=== PATIENT | female | born 1960 ===

== ENCOUNTER 2023-05-23 07:05 | Day surgery (SDC) | payer OTHER ==
[~2023-05-23] VITALS: Ht 157.5 cm; Wt 63.5 kg
[~2023-05-23 07:05] MED LIST: CLONAZEPAM1 M1 PO; CRESTOR5 MG PO; RESTORIL30 M1 PO
[2023-05-23] MEDS ORDERED: OXYC1TAB9 PO (12:45)
== END 2023-05-23 18:05 | disposition home or self-care (01) ==
LOC: CIR.AMB 07:05
PROVIDERS: ATTEND Surgery
DX: K64.2 Third degree hemorrhoids (principal); K64.8 Other hemorrhoids; K64.4 Residual hemorrhoidal skin tags; K62.0 Anal polyp; K62.89 Other specified diseases of anus and rectum; K62.5 Hemorrhage of anus and rectum; Z20.822 Contact with and (suspected) exposure to COVID-19; Z88.6 Allergy status to analgesic agent

== ENCOUNTER 2025-06-08 07:10 | Outpatient (CLI) | payer OTHER ==
[~2025-06-08 07:10] MED LIST changes: +OXYC1TAB9 PO
[2025-06-08 07:56] LABS: URINE APPEARANCE Clear; URINE BILIRRUBIN Negative (NEGATIVE); URINE BLOOD Negative; URINE COLOR Yellow; URINE GLUCOSE Negative (NEGATIVE); URINE KETONE Negative (NEGATIVE); URINE LEUKOCYTE Negative; URINE NITRATE Negative; URINE PROTEIN Negative (NEGATIVE); URINE UROBILINOGEN 0.2 E.U./dl
[2025-06-08 07:57] LABS: URINE EPITHELIAL CELLS 1.9 uL (0.0-38.8); URINE RBC 4.5 uL (0.0-20.8)
[2025-06-08 08:03] LABS: URINE BACTERIA 3.6 uL (0.0-1933); URINE CAST 0.00 uL (0.0-1.40); URINE WBC 0.9 uL (0.0-23.2)
[2025-06-08 08:05] LABS: BASO % 1.4 % (0.1-1.2); EOS # 0.09 (0.04-0.54); EOS % 1.4 % (0.7-7.0); LYMPH # 1.64 (1.18-3.74); LYMPH % 26.1 % (19.3-53.1); MEAN PLATELET VOLUME 9.70 fl (9.4-12.4); MONO # 0.38 (0.24-0.82); MONO % 6.1 % (4.7-12.5); NEUT # 4.07 (1.56-6.13); NEUT % 64.8 % (34.0-71.1); RED CELL DISTRIBUTION WIDTH 13.2 % (11.6-14.4)
[2025-06-08 08:17] LABS: ALT/SGPT 32.0 U/L (12-78); AST/SGOT 16.0 U/L (15-37); BILIRUBIN TOTAL 1.19 mg/dL (0.3-1.2); BUN CREA RATIO 13.0 (7.0-25.0); CHOL HDL RATIO 4.8 (0-5.0); CREATININE SERUM 1.12 mg/dL (0.55-1.02); GFR 49.13; GLOBULINA 3.3 G/DL (2.4-3.5); GLUCOSE FASTING 97.0 mg/dL (65-100); HDL 46.0 mg/dl (40-60); LDL 116.0 mg/dl (0-130); OSMOLALITY SERUM 278.0 MOSM/KG (275-295); VLDL 59.0 (0-39)
== END 2025-06-08 07:15 | disposition home or self-care (01) ==
LOC: LAB 07:10
DX: D68.8 Other specified coagulation defects (principal); R19.4 Change in bowel habit; R19.7 Diarrhea, unspecified; K57.30 Diverticulosis of large intestine without perforation or abscess without bleeding; K29.70 Gastritis, unspecified, without bleeding; K75.81 Nonalcoholic steatohepatitis (NASH); K85.90 Acute pancreatitis without necrosis or infection, unspecified